=== PATIENT | male | born 1990 | race Caucasian/White ===

== ENCOUNTER 2017-11-03 10:20 | Emergency (ER) | payer OTHER, SELFPAY ==
[2017-11-03 10:22] VITALS: BP 163/111; PULSE 98; RESP 16; TEMP 36.6; O2SAT 99; BMI 25.1
--- NOTE | 2017-11-03 10:43 | CT_ITS ---
STUDY: CT BRAIN WITHOUT CONTRAST REASON FOR EXAM: Male, 26 years old. Confusion. Visual hallucinations. RADIATION DOSAGE (If Supplied By Facility): CTDIvol = ( 60.851 ) mGy, DLP = ( 1044.28 ) mGycm TECHNIQUE: Transaxial CT imaging of the brain was performed without administration of intravenous contrast material. Individualized dose optimization techniques were used for this CT. COMPARISON: None. FINDINGS: Normal soft tissue structures. Normal calvarium. Normal size ventricles and extra-axial spaces for the patient's age. Normal white matter tracts of the cerebral hemispheres. Normal basal ganglia and thalami. Normal brainstem. Normal cerebellum. There is no intracranial hemorrhage. There are no findings of an acute ischemic infarction. Partial opacification of the ethmoid sinuses bilaterally. CT/Brain/Head without Contrast IMPRESSION: Partial opacification of the ethmoid sinuses bilaterally. Electronically Signed: Dallin Grider MD at 12:33 EDT Tel [phone], Service support ,
[2017-11-03 11:15] LABS: Amphetamine Urine VISTA NEGATIVE (<1000 ng/mL); Barbiturate Urine VISTA NEGATIVE (< 200 ng/mL); Benzodiazepine Urine VISTA NEGATIVE (< 200 ng/mL); Cocaine Urine VISTA NEGATIVE (< 300 ng/mL); Ecstacy Urine VISTA NEGATIVE (< 500 ng/mL); Methadone Urine VISTA NEGATIVE (< 300 ng/mL); PCP Urine VISTA NEGATIVE (< 25 ng/mL); THC Urine VISTA NEGATIVE (< 50 ng/mL); Vista UDS pH Range 6
[2017-11-03] MEDS: LORazepam 2 MG/ML Syringe 1 MG IM (11:18)
[2017-11-03 11:56] LABS: Absolute Lymphocyte Count 0.93 X10^3/ul (0.83-4.51); Absolute Neutrophil Count 5.5 X10^3/uL (2.0-7.7); Basophil# 0.03 X10^3/uL; Basophil% 0.4 % (0-1); Eosinophil# 0.06 X10^3/uL; Eosinophils% 0.9 % (0-5); Hematocrit 45.3 % (40-54); Hemoglobin 16.3 g/dl (13.0-16.5); Lymphocyte # 0.93 X10^3/ul (4.0); Lymphocyte % 13.5 % (19-41); Mean Corpuscular Hgb 32.4 pg (27.0-32.0); Mean Corpuscular Volume 90.1 fL (80-94); Mean Platelet Vol. 9.6 fl (6.2-12.0); Monocyte% 5.8 % (0-10); Neutrophil # 5.47 X10^3/uL (2.7-7.7); Neutrophil % 79.3 % (47-70); POSITIVE COUNT NO; POSITIVE DIFFERENTIAL NO; POSITIVE MORPHOLOGY NO; Platelet Count 202 K/mm3 (150-450); RBC Distribution Width CV 12.5 % (11.6-14.6); RBC Distribution Width SD 40.8 fl (35.1-43.9); Red Blood Count 5.03 M/mm3 (4.6-6.2); White Blood Count 6.9 K/mm3 (4.4-11.0)
[2017-11-03 12:07] LABS: Anion Gap 6 (5-15); BUN 8 mg/dL (7-18); BUN/Creat Ratio 9.7 RATIO (10-20); Calcium,Total 8.7 mg/dL (8.5-10.1); Chloride 108 mmol/L (98-107); Creatinine, Serum 0.82 mg/dL (0.70-1.30); EST Glomerular Filtration Rate 118 mL/min (>60); Est Glom Filt Rate - Afr Amer 142 mL/min (>60); Estimated Creatinine Clearance 138.48 ml/min; Glucose 101 mg/dL (74-106); Potassium 3.8 mmol/L (3.5-5.1); Sodium Level 142 mmol/L (136-145)
[2017-11-03 12:17] LABS: Alcohol, Blood (Medical)-Serum < 3.0 mg/dL
--- NOTE | 2017-11-03 12:24 | ED.VISSUMM ---
- ER Visit Summary Date of Service: 11/03/17 Chief Complaint: [Hallucinations and abnormal behavior] History of Present Illness: The patient is a 26 M [presents the emergency department with his mother for complaint of worsening hallucinations. Patient's had symptoms for about 1 week. Per mom patient's been increasingly stressed as he works 2 jobs. Patient feels that people at work want to get him fired. Patient admits to having visual hallucinations and seeing things such as pool balls kind of melting into one another colors blending. Patient also focuses in on triangular shapes different objects that make triangles and also shapes that appear like arrows pointing to his mother's home. Patient denies any falls or head injuries or recent illness. Mother states that there is a significant family history of bipolar disease and schizophrenia.] Patient denies suicidal ideation. Patient denies homicidal ideation. Physical Examination: [HEENT-PERRLA, EOMI. Cranial nerves II through XII grossly intact. TMs clear. Mucous membranes moist. No adenopathy. Cardiovascular-regular rate and rhythm without murmur or ectopy Lungs-clear to auscultation, chest wall stable without crepitus or subcu emphysema Abdomen-normoactive bowel sounds, soft, nontender, no rebound or rigidity, no peritoneal signs. Extremities-intact ?4, normal range of motion, normal pulses, atraumatic] Test Results: [CBC with differential was normal. Chemistries were unremarkable. Toxicology screen was negative. Alcohol was negative. 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 It may contain incorrect words, spelling, and punctuation that were not noted in review of the chart prior to signing ED Disposition - Plan for ED Patient: Chief Complaint: Suicidal Referrals: Roxane Doctor,Out of [Primary Care Provider] -
--- NOTE | 2017-11-03 12:27 | ED.DCSUM_ITS ---
- ER Visit Summary Date of Service: 11/03/17 Chief Complaint: [Hallucinations and abnormal behavior] History of Present Illness: The patient is a 26 M [presents the emergency department with his mother for complaint of worsening hallucinations. Patient' s had symptoms for about 1 week. Per mom patient's been increasingly stressed as he works 2 jobs. Patient feels that people at work want to get him fired. Patient admits to having visual hallucinations and seeing things such as pool balls kind of melting into one another colors blending. Patient also focuses in on triangular shapes different objects that make triangles and also shapes that appear like arrows pointing to his mother's home. Patient denies any falls or head injuries or recent illness. Mother states that there is a significant family history of bipolar disease and schizophrenia.] Patient denies suicidal ideation. Patient denies homicidal ideation. Physical Examination: [HEENT-PERRLA, EOMI. Cranial nerves II through XII grossly intact. TMs clear. Mucous membranes moist. No adenopathy. Cardiovascular-regular rate and rhythm without murmur or ectopy Lungs-clear to auscultation, chest wall stable without crepitus or subcu emphysema Abdomen-normoactive bowel sounds, soft, nontender, no rebound or rigidity, no peritoneal signs. Extremities-intact ?4, normal range of motion, normal pulses, atraumatic] Test Results: [CBC with differential was normal. Chemistries were unremarkable. Toxicology screen was negative. Alcohol was negative. CT scan of the brain without contrast showed nothing acute.] Emergency Department Course and Treatment: [Patient will be evaluated by crisis. 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 It may contain incorrect words, spelling, and punctuation that were not noted in review of the chart prior to signing ED Disposition - Plan for ED Patient: Chief Complaint: Suicidal Referrals: Roxane Doctor,Out of [Primary Care Provider] -
[2017-11-03 15:28] VITALS: BP 145/77; PULSE 90; RESP 18; O2SAT 99
--- NOTE | 2017-11-03 17:18 | ED.RN ---
called report to Sonia at [facility]
--- NOTE | 2017-11-03 17:39 | ED.RN ---
left message for mother of where pt going and their phone number.
== END 2017-11-03 17:40 ==
PROVIDERS: Emergency Provider Emergency Medicine
DX: F22 Delusional disorders (principal); Z72.0 Tobacco use
CPT/HCPCS: 70450; 80048; 80307; 80320; 85025; 96372; 99284; J7030; G0480